=== PATIENT | male | born 2005 | race Two or more races ===

== ENCOUNTER 2024-10-19 22:41 | Emergency (ER) | payer MEDICAID, SELFPAY ==
[2024-10-19 22:42] VITALS: BMI 45.1
[2024-10-19 22:54] VITALS: BP 144/98; PULSE 111; RESP 18; TEMP 37.6; O2SAT 96
--- NOTE | 2024-10-19 22:54 | EKG_ITS ---
[facility] Test Date: 2024-10-19 Pat Name: MARIANO LARES Department: Room: - Gender: Male [employer]: : 2005 Requested By: Abhi Rao Order Number: [id number] Reading MD: Abhi Rao Measurements Intervals [place] Rate: 105 P: 45 LA: 158 QRS: 81 QRSD: 110 T: 28 QT: 321 QTc: 425 Interpretive Statements SINUS TACHYCARDIA INDETERMINATE AXIS NONSPECIFIC ST ELEVATION [0.05+ mV ST ELEVATION] ABNORMAL RHYTHM ECG Compared to ECG 12/23/2018 17:58:37 Indeterminate axis now present ST (T wave) deviation now present /store/S0/[id number]/[id number].pdf
--- NOTE | 2024-10-19 22:55 | PD.EDRME ---
Rapid Medical Screening Exam RME Arrival date/time: 10/19/24 22:41 18 year old male present to ED for c/o of dizziness, + influenza exposure I have greeted and performed a focused initial assessment of this patient. A comprehensive ED assessment and evaluation of the patient, analysis of all test results, and completion of the medical decision making process will be conducted by additional ED providers. Chief Complaint: Dizziness Time Seen by Provider: 10/19/24 22:52
[2024-10-19] MEDS: ONDANSETRON ODT 4 MG TABRAP PO (23:02)
[2024-10-20 00:01] LABS: Strep A Rapid Negative (Negative)
--- NOTE | 2024-10-20 00:22 | EDNOTE_ITS ---
ED Dizzyness RME/HPI General Chief Complaint: Dizziness Stated Complaint: ANXIETY ATTACK / DIZZINESS Time Seen by Provider: 10/19/24 22:52 Arrival date/time: 10/19/24 22:41 18 year old male present to emergency room with c/o of dizziness and weakness. pt report being exposure to influenza. SEVERITY: Symptoms are described as being severe with limitations on activities of daily living CONTEXT: The patient is unable to identify any inciting events. DURATION/TIMING: The symptoms started approximately 1 day ASSOCIATED SYMPTOMS: The patient is unable to identify any other associated symptoms. MODIFYING FACTORS: The patient is unable to identify any alleviating or aggravating symptoms. PERTINENT ROS: no fevers, no cough, no pleuritic pain, no ripping or tearing sensations, denies any lower extremity edema and no unilateral swelling, no chest pain/shortness of breath no nausea,vomiting, diarrhea, no headache no rash no loc/syncope episode no abd/back pain no dsyuria,urgency,frequency REVIEW OF SYSTEMS: See History of Present Illness - with the exception of those mentioned in the history of present illness, all other systems reviewed and reported as negative GENERAL: In general the patient is awake, interactive, in an emergency department [facility]. HEAD/EYES/EARS/NOSE/THROAT: normo-cephalic, atraumatic, mucus membranes are moist, anicteric, palpebral conjunctiva is pink, trachea is midline. CARDIOVASCULAR:tachycardia, no murmurs, heart sounds are not distant, strong pulses in all four extremities that are equal and symmetric bilateral upper and lower extremities, normal capillary refill. CHEST/PULMONARY: normal chest rise and fall, good air movement, clear to auscultation bilaterally, normal inspiratory to expiratory ratios without evidence of respiratory distress. NECK: No midline/Paraspinal tenderness, no step off ROM/Strenght intact No Kernig and bruzinski sign. No trauma ABDOMEN: soft, not tender, no masses appreciated BACK: normal range of motion without pain. NEUROLOGICAL: cranio-facial features are symmetric, moves all four extremities equally without obvious limitations or weakness. EXTREMITY: no tenderness to palpation over the long bones or large joints of the bilateral upper and lower extremities, no joint swelling, no joint erythema, no signs of trauma, no unilateral leg swelling and no peripheral edema. SKIN: warm, dry, well-perfused, no jaundice, no rash, no telangiectasias or petechia. PSYCH: calm, cooperative, no evidence of psychosis or agitation RME / HPI RME / HPI Narrative: 10/19/24 22:41 18 year old male present to ED for c/o of dizziness, + influenza exposure I have greeted and performed a focused initial assessment of this patient. A comprehensive ED assessment and evaluation of the patient, analysis of all test results, and completion of the medical decision making process will be conducted by additional ED providers. Related Data Previous Rx's ?Medication ?Instructions ?Recorded ibuprofen 800 mg tablet (IBU) 800 mg PO TID PRN fever #30 tabs 10/20/24 ondansetron 4 mg disintegrating 4 mg PO Q8H PRN nausea and 10/20/24 tablet vomiting #20 tabs oseltamivir 75 mg capsule (Tamiflu) 75 mg PO BID 5 days #10 caps 10/20/24 Allergies Allergy/AdvReac Type Severity Reaction Status Date / Time No Known Allergies Allergy Verified 02/28/23 13:55 Course Course Course Narrative: Patient presenting with influenza like symptoms.? Obtained influenza A/B screen, which revealed positive influenza.? The following were considered in the patient's differential diagnosis but was not deemed to be consistent with patient's history of present illness and/or physical examination; meningitis, pharyngitis, otitis media, pneumonia, urinary tract infection, peritonsillar abscess, retropharyngeal abscess.? As patient does not present with any signs/symptoms of pneumonia or other complications, deferred CXR or further labwork at this time. Educated patient on diagnosis and natural course of influenza.? Supportive care and preventive measures were discussed.? Continue fluid hydration. Follow up with primary physician in 3-5 days if symptoms continue or new problems arise. Return if having persistent high fever, altered mental status, shortness of breath, uncontrolled vomiting, or other concerns.? ? Impression:?? Influenza Plan:? Prescribed zofran, tamiflu and ibu? Advised patient on support therapies, including rest, advancement of fluids as tolerated, thorough handwashing w/ soap and H2O, taking OTC ibuprofen or acetaminophen as directed, OTC expectorant/antitussive/decongestants as directed. Advised patient to refrain from visiting work, school, or daycares or visiting women, elderly, or those w/ chronic illnesses. Advised patient to return with new or worsening symptoms. Quality Measures none Orders Category Date Time Status Bedside COVID-19 Antigen Test NOW Care 10/19/24 22:54 Completed Bedside Influenza A&B Antigen Test NOW Care 10/19/24 22:54 Completed EKG (ED ONLY) *Do not use* NOW Care 10/19/24 22:54 Completed EKG (ED Only) Stat Exams 10/19/24 22:54 Draft Strep A Rapid Stat Lab 10/19/24 23:15 Completed Ondansetron Odt [Zofran Odt] Med 10/19/24 22:54 Discontinued 4 mg PO X1 ONE Reevaluation(s) Reevaluation #1: pt is feeling better after tx Vital Signs Vital signs: Vital Signs Temperature 99.6 F 10/19/24 22:54 Pulse Rate 111 H 10/19/24 22:54 Respiratory Rate 18 10/19/24 22:54 Blood Pressure 144/98 H 10/19/24 22:54 Pulse Oximetry (%) 96 10/19/24 22:54 Oxygen Delivery Method Room Air 10/19/24 22:54 Procedures -ED EKG Interpretation #1: Date of EK10/20/24 Rate: 105 Interpretation: Reviewed by me EKG Impression: Sinus tachycardia Dizziness Patient data External records reviewed:: None Clinical information provided by:: patient Social determinants that could affect healthcare access:: none Patient has the following chronic illnesses:: none How is presenting disease/condition affected by chronic disease/condition?: no chronic disease Evaluation data The following diagnostics were reviewed and interpreted by me:: lab results and radiology exam(s) Lab and/or radiology exams considered but not ordered:: none Interpretation Summary: +influenza, negative strep Medications / Prescriptions Medications or Prescriptions considered but not ordered:: none Medication administrations:: Medication Administration History Discontinued Medications Ondansetron HCl (Ondansetron Odt 4 Mg Tabrap) 4 mg PO X1 ONE; Protocol Stop: 10/19/24 22:55 Last Admin: 10/19/24 23:02 Dose: 4 mg Documented By: CB as state above Consultations Consultation(s) initiated? (list below): No Diagnosis Dizziness Differential Diagnosis: other (anxiety, strep, viral, influenza, covid ) Most likely diagnosis given after review of the tests above:: influenza Admission Indicated Admission indicated?: not indicated Admission Request Was there a request for admission?: No Disposition Plan Disposition Plan: Discharge Discharge Attestation Discharge Attestation: The patient and all family members were given an opportunity to ask questions and understood the discharge instructions. Discharge instructions specifically effects, indications for sooner follow up or return to the emergency department, and the expected course of current diagnosis. Patient condition: Stable Discharge Plan Plan Patient Disposition: HOME (Self Care) Health Concerns: Follow with PMD as directed Take tylenol or motrin as need Return to ED if sx worsen Prescriptions/Referrals Prescriptions/Med Rec: New ondansetron 4 mg tablet,disintegrating 4 mg PO Q8H PRN (Reason: nausea and vomiting) Qty: 20 0RF ibuprofen [IBU] 800 mg tablet 800 mg PO TID PRN (Reason: fever) Qty: 30 0RF oseltamivir [Tamiflu] 75 mg capsule 75 mg PO BID 5 Days Qty: 10 0RF Referrals: Olya Matute MD [Primary Care Provider] - In 1 week Problem List Clinical Impression: Influenza Patient/Caregiver Discharge Instructions Education Materials: ED Influenza (Adult) Print Language: Estonian Stand Alone Forms: [employer] Award Info., Patient Portal Info Letter
[2024-10-20 00:28] VITALS: BP 138/76; PULSE 98; RESP 20; TEMP 37.2; O2SAT 98
== END 2024-10-20 00:29 | disposition home or self-care (01) ==
PROVIDERS: Physician Assistant; Emergency Provider Emergency Medicine; PCP Family Medicine
DX: J11.1 Influenza due to unidentified influenza virus with other respiratory manifestations (principal); R00.0 Tachycardia, unspecified
CPT/HCPCS: 87400; 87651; 87811; 93005; 99283; Q0162

== ENCOUNTER → 2025-03-04 | Outpatient (CLI) | payer MEDICAID, SELFPAY ==
--- NOTE | 2025-03-04 14:30 | XR_ITS ---
Examination: Arterial duplex lower extremity study. Date and time of exam: March 04, 2025 1438 hours INDICATIONS: Bilateral leg pain beginning 2 years ago Findings: Duplex sonographic imaging of the lower extremity arteries using B-mode/Delgado scale imaging and Doppler spectral analysis and color flow. Ankle brachial indices have been recorded. Right common femoral artery demonstrates triphasic flow. Right superficial femoral artery demonstrates triphasic flow. Right popliteal artery demonstrates triphasic flow. Right posterior tibial artery demonstrated triphasic flow. Right ankle/brachial index is 1.2. Left common femoral artery demonstrates triphasic flow. Left superficial femoral artery demonstrates triphasic flow. Left popliteal artery demonstrates triphasic flow. Left posterior tibial artery demonstrated triphasic flow. Left ankle/brachial index is 1.1. Impression: Negative study
== END | disposition home or self-care (01) ==
PROVIDERS: PCP Family Medicine; Referring Provider Family Medicine; Visit Provider Family Medicine
DX: M79.605 Pain in left leg (principal); M79.604 Pain in right leg
CPT/HCPCS: 93925